=== PATIENT | female | born 1965 | race African-American/Black ===

== ENCOUNTER 2019-01-11 16:24 | Inpatient (IN) ==
[2019-01-11] MEDS ORDERED: ALUM/MAG/SIMETH/LIDO VISC 1:1 30 ML BOTTLE PO STA (16:59)
[2019-01-11] MEDS ORDERED: HYDROmorphone 2 MG/1 ML VIAL IV STA (16:59)
[2019-01-11] MEDS ORDERED: PANTOPRAZOLE 40 MG VIAL IV STA (16:59)
[2019-01-11] MEDS ORDERED: ONDANSETRON 4 MG/2 ML VIAL IV STA (16:59)
[2019-01-11 17:13] LABS: Basophils % 0.8 % (0.0-0.8); Hematocrit 41.4 VOL% (35.7-47.0); Hemoglobin 13.8 GM/DL (12.0-16.0); Immature Granulocytes % 0.4 %; Immature Granulocytes Absolute 0.02 #; Lymphocytes # 0.6 10*3/uL (1.4-4.0); Lymphocytes % 12.7 % (21.3-54.2); Mean Corpuscular HGB Conc 33.3 GM/DL (32-36); Mean Corpuscular Hemoglobin 26 PG (27-34); Mean Corpuscular Volume 79.2 FL (87-102); Mean Platelet Volume 12.7 FL (9.6-12.0); Monocytes # 0.1 10*3/uL (0.11-0.8); Monocytes % 2.1 % (1.7-12.7); Platelet Count 155 T/CUMM (130-400); Red Blood Count 5.23 MC/CUMM (3.8-5.5); Red Cell Distribution Width 14.6 % (9.3-17.3); White Blood Count 4.7 T/CUMM (4-12)
[2019-01-11 17:32] LABS: Alanine Aminotransferase 198 U/L (13-56); Albumin 3.2 G/DL (3.4-5.0); Alkaline Phosphatase 185 U/L (45-117); Amylase 35 U/L (25-115); Aspartate Amino Transferase 174 U/L (0-37); Blood Urea Nitrogen 12 MG/DL (7-18); Glucose 108 MG/DL (74-106); Osmolality,Calculated 268.2 MOS/KG (273-304); Potassium 3.5 MMOL/L (3.5-5.1); Sodium 134 MMOL/L (136-145); Total Protein 7.9 G/DL (6.4-8.3)
[2019-01-11 18:09] LABS: Amorphous Crystals,Urine Occasional /HPF (Few); Apearance,Urine Slightly Hazy (Clear); Bacteria,Urine Occasional /HPF (Few); Blood, Urine Moderate mg/dL (Negative); Glucose,Urine (UA) Negative (Negative); Ketones,Urine 20 mg/dL (Negative); Mucus,Urine Many /LPF (Occasional); Nitrite,Urine Negative (Negative); Protein,Urine 100 MG/DL; RBC,Urine 1 /HPF (0-4); Squamous Epithelial Cell,Urine Occasional /HPF (0-10); Transitional Epi Cells,Urine Occasional /HPF (<1); Urine Color Amber (Yellow); Urine Specific Gravity 1.025 (1.001-1.035); WBC,Urine 5 /HPF (0-6)
[2019-01-11 18:10] LABS: Bilirubin,Urine Moderate mg/dL (Negative)
[2019-01-11 18:15] LABS: Band Neutrophils 47 % (0-10); Hypochromasia 1+; Lymphocytes 11 % (20-55); Microcytosis Slight; Platelet Estimate Adequate; Segmented Neutrophils 40 % (50-85); Total Cells Counted 100
[2019-01-11] MEDS ORDERED: ALBUTEROL 2.5 MG/3 ML NEB RESP TX PRN ×2 (19:17)
[2019-01-11] MEDS ORDERED: INDOMETHACIN 25 MG CAPSULE PO PRN (19:17)
[2019-01-11] MEDS ORDERED: FUROSEMIDE 20 MG TABLET PO PRN (19:17)
[2019-01-11] MEDS ORDERED: SODIUM CHLORIDE 0.9% 1,000 ML IV STA (19:18)
[2019-01-11] MEDS: BUDESONIDE/FORMOTEROL 160-4.5 INHALER 6 GM INH SCH (21:47)
[2019-01-11] MEDS: PANTOPRAZOLE 40 MG TABLET PO SCH (21:50)
[2019-01-11] MEDS: COLCHICINE 0.6 MG CAPSULE PO SCH (21:50)
[2019-01-11] MEDS: AMOXICILLIN 500 MG CAPSULE PO SCH (22:03)
[2019-01-11] MEDS: DILTIAZEM CD 180 MG CAPSULE PO SCH (22:04)
[2019-01-11] MEDS: METOPROLOL TARTRATE 50 MG TABLET PO SCH (22:04)
[2019-01-11] MEDS: GABAPENTIN 300 MG CAPSULE PO SCH (22:05)
[2019-01-11] MEDS: DIVALPROEX ER 500 MG TABLET PO SCH (22:05)
[2019-01-11] MEDS: hydrALAZINE 25 MG TABLET PO SCH (22:05)
[2019-01-11] MEDS: CLARITHROMYCIN 500 MG TABLET PO SCH (22:05)
[2019-01-11] MEDS: CRISABOROLE TOP SCH (22:05)
[2019-01-11] MEDS: QUEtiapine 100 MG TABLET PO SCH (22:06)
[2019-01-11] MEDS: HYDROmorphone 2 MG/1 ML VIAL IV PRN (22:07)
[2019-01-12] MEDS: HYDROmorphone 2 MG/1 ML VIAL IV PRN ×4 (04:41→23:44)
[2019-01-12] MEDS ORDERED: PANTOPRAZOLE 40 MG TABLET PO SCH (09:00)
[2019-01-12] MEDS: COLCHICINE 0.6 MG CAPSULE PO SCH ×2 (09:18→21:37)
[2019-01-12] MEDS: DILTIAZEM CD 180 MG CAPSULE PO SCH ×2 (09:18→21:31)
[2019-01-12] MEDS: DIVALPROEX ER 500 MG TABLET PO SCH ×2 (09:18→21:31)
[2019-01-12] MEDS: METOPROLOL TARTRATE 50 MG TABLET PO SCH ×2 (09:18→21:31)
[2019-01-12] MEDS: hydrALAZINE 25 MG TABLET PO SCH ×3 (09:18→21:30)
[2019-01-12] MEDS: CETIRIZINE 10 MG TABLET PO SCH (09:18)
[2019-01-12] MEDS: CRISABOROLE TOP SCH ×2 (09:18→21:31)
[2019-01-12] MEDS: PANTOPRAZOLE 40 MG TABLET PO SCH ×2 (09:18→21:37)
[2019-01-12] MEDS: BUDESONIDE/FORMOTEROL 160-4.5 INHALER 6 GM INH SCH ×2 (09:18→21:32)
[2019-01-12 10:42] LABS: % Iron Saturation 11.9 % (18-50)
[2019-01-12 10:47] LABS: Albumin 2.8 G/DL (3.4-5.0); Calcium 8.4 MG/DL (8.5-10.1); Osmolality,Calculated 268.2 MOS/KG (273-304); Potassium 3.9 MMOL/L (3.5-5.1); Total Protein 7.2 G/DL (6.4-8.3)
[2019-01-12] MEDS: CLARITHROMYCIN 500 MG TABLET PO SCH (11:15)
[2019-01-12] MEDS: AMOXICILLIN 500 MG CAPSULE PO SCH (11:15)
[2019-01-12 11:35] LABS: Hepatitis A Ab IgM Quant 0.22 Index; Hepatitis A Ab IgM Result Negative (Negative); Hepatitis B Core IgM Result Negative (Negative); Hepatitis B Surface Ag Quant < 0.10 Index; Hepatitis B Surface Ag Result Negative (Negative); Hepatitis C Virus Ab Quant 0.08 Index; Hepatitis C Virus Ab Result Negative (Negative)
[2019-01-12] MEDS ORDERED: diphenhydrAMINE 2% CREAM 28 GM TUBE TOP PRN (16:51)
[2019-01-12] MEDS: SODIUM CHLORIDE 0.9% 1,000 ML IV SCH (18:04)
[2019-01-12] MEDS: metroNIDAZOLE INJ 500 MG in PREMIX 1 EACH IV SCH (18:09)
[2019-01-12] MEDS: predniSONE 20 MG TABLET PO SCH (18:18)
[2019-01-12] MEDS: TOPIRAMATE 100 MG TABLET PO SCH (18:19)
[2019-01-12] MEDS: diphenhydrAMINE 50 MG/1 ML VIAL IV SCH ×2 (19:25→23:35)
[2019-01-12] MEDS: LEVOFLOXACIN INJ 500 MG in PREMIX 1 EACH IV SCH (19:31)
[2019-01-12] MEDS: GABAPENTIN 300 MG CAPSULE PO SCH (21:31)
[2019-01-12] MEDS: QUEtiapine 100 MG TABLET PO SCH (21:32)
[2019-01-13] MEDS: metroNIDAZOLE INJ 500 MG in PREMIX 1 EACH IV SCH ×3 (01:01→16:40)
[2019-01-13] MEDS: DIVALPROEX ER 500 MG TABLET PO SCH ×3 (01:09→20:57)
[2019-01-13 04:30] LABS: Basophils % 0.4 % (0.0-0.8); Hemoglobin 10.8 GM/DL (12.0-16.0); Immature Granulocytes % 0.8 %; Immature Granulocytes Absolute 0.04 #; Lymphocytes # 0.8 10*3/uL (1.4-4.0); Lymphocytes % 15.8 % (21.3-54.2); Mean Corpuscular HGB Conc 31.8 GM/DL (32-36); Mean Corpuscular Hemoglobin 26 PG (27-34); Mean Corpuscular Volume 81.5 FL (87-102); Mean Platelet Volume 12.8 FL (9.6-12.0); Monocytes # 0.1 10*3/uL (0.11-0.8); Monocytes % 1.9 % (1.7-12.7); Neutrophils # 3.8 10*3/uL (1.4-7.4); Neutrophils % 81.1 % (38.7-73.9); Platelet Count 141 T/CUMM (130-400); Red Blood Count 4.17 MC/CUMM (3.8-5.5); Red Cell Distribution Width 14.9 % (9.3-17.3); White Blood Count 4.7 T/CUMM (4-12)
[2019-01-13 04:48] LABS: Hypochromasia 1+; Ovalocytes Slight; Platelet Estimate Adequate
[2019-01-13 04:49] LABS: Microcytosis Slight
[2019-01-13 04:53] LABS: Albumin 2.5 G/DL (3.4-5.0); Bilirubin,Total 3.4 MG/DL (0.2-1.0); Calcium 8.5 MG/DL (8.5-10.1); Osmolality,Calculated 268.2 MOS/KG (273-304); Potassium 3.9 MMOL/L (3.5-5.1); Total Protein 6.5 G/DL (6.4-8.3)
[2019-01-13] MEDS: diphenhydrAMINE 50 MG/1 ML VIAL IV SCH ×3 (05:30→19:34)
[2019-01-13] MEDS: HYDROmorphone 2 MG/1 ML VIAL IV PRN ×3 (08:00→16:30)
[2019-01-13] MEDS: COLCHICINE 0.6 MG CAPSULE PO SCH ×2 (09:00→20:57)
[2019-01-13] MEDS: hydrALAZINE 25 MG TABLET PO SCH ×3 (09:49→20:50)
[2019-01-13] MEDS: CRISABOROLE TOP SCH ×2 (09:49→20:51)
[2019-01-13] MEDS: BUDESONIDE/FORMOTEROL 160-4.5 INHALER 6 GM INH SCH ×2 (09:49→20:51)
[2019-01-13] MEDS: DILTIAZEM CD 180 MG CAPSULE PO SCH ×2 (09:49→20:50)
[2019-01-13] MEDS: METOPROLOL TARTRATE 50 MG TABLET PO SCH ×2 (09:50→20:51)
[2019-01-13] MEDS: TOPIRAMATE 100 MG TABLET PO SCH (09:51)
[2019-01-13] MEDS: SODIUM CHLORIDE 0.9% 1,000 ML IV SCH (12:25)
[2019-01-13 13:02] LABS: INR 1.1; PT Patient Result 11.4 SECS
[2019-01-13] MEDS: predniSONE 20 MG TABLET PO SCH (16:25)
[2019-01-13] MEDS: PANTOPRAZOLE 40 MG TABLET PO SCH ×2 (16:26→20:57)
[2019-01-13] MEDS: CETIRIZINE 10 MG TABLET PO SCH (16:36)
[2019-01-13] MEDS: LEVOFLOXACIN INJ 500 MG in PREMIX 1 EACH IV SCH (17:47)
[2019-01-13] MEDS: GABAPENTIN 300 MG CAPSULE PO SCH (20:51)
[2019-01-13] MEDS: QUEtiapine 100 MG TABLET PO SCH ×2 (20:51→22:30)
[2019-01-14] MEDS: HYDROmorphone 2 MG/1 ML VIAL IV PRN ×3 (00:47→13:16)
[2019-01-14] MEDS: diphenhydrAMINE 50 MG/1 ML VIAL IV SCH ×4 (00:47→17:53)
[2019-01-14] MEDS: metroNIDAZOLE INJ 500 MG in PREMIX 1 EACH IV SCH ×3 (00:55→16:19)
[2019-01-14 05:20] LABS: Basophils % 0.3 % (0.0-0.8); Hematocrit 33.1 VOL% (35.7-47.0); Hemoglobin 10.5 GM/DL (12.0-16.0); Immature Granulocytes % 0.7 %; Immature Granulocytes Absolute 0.05 #; Lymphocytes # 0.9 10*3/uL (1.4-4.0); Mean Corpuscular HGB Conc 31.7 GM/DL (32-36); Mean Corpuscular Hemoglobin 26 PG (27-34); Mean Corpuscular Volume 81.7 FL (87-102); Monocytes # 0.2 10*3/uL (0.11-0.8); Monocytes % 2.7 % (1.7-12.7); Neutrophils # 5.7 10*3/uL (1.4-7.4); Neutrophils % 83.3 % (38.7-73.9); Platelet Count 205 T/CUMM (130-400); Red Blood Count 4.05 MC/CUMM (3.8-5.5); Red Cell Distribution Width 15.1 % (9.3-17.3); White Blood Count 6.8 T/CUMM (4-12)
[2019-01-14] MEDS: SODIUM CHLORIDE 0.9% 1,000 ML IV SCH ×2 (05:47→09:42)
[2019-01-14 05:51] LABS: Albumin 2.4 G/DL (3.4-5.0); Bilirubin,Total 2.7 MG/DL (0.2-1.0); Calcium 8.3 MG/DL (8.5-10.1); Osmolality,Calculated 271.8 MOS/KG (273-304); Potassium 3.8 MMOL/L (3.5-5.1); Total Protein 6.5 G/DL (6.4-8.3)
[2019-01-14] MEDS ORDERED: DIAZEPAM 5 MG TABLET PO ONE (09:00)
[2019-01-14] MEDS: CETIRIZINE 10 MG TABLET PO SCH (09:34)
[2019-01-14] MEDS: BUDESONIDE/FORMOTEROL 160-4.5 INHALER 6 GM INH SCH ×2 (09:34→21:10)
[2019-01-14] MEDS: COLCHICINE 0.6 MG CAPSULE PO SCH ×2 (09:34→21:07)
[2019-01-14] MEDS: DIVALPROEX ER 500 MG TABLET PO SCH ×2 (09:34→21:08)
[2019-01-14] MEDS: predniSONE 20 MG TABLET PO SCH (09:35)
[2019-01-14] MEDS: PANTOPRAZOLE 40 MG TABLET PO SCH ×2 (09:35→21:07)
[2019-01-14] MEDS: CRISABOROLE TOP SCH ×2 (09:42→21:10)
[2019-01-14] MEDS: hydrALAZINE 25 MG TABLET PO SCH ×3 (09:42→21:10)
[2019-01-14] MEDS: METOPROLOL TARTRATE 50 MG TABLET PO SCH ×2 (09:42→21:10)
[2019-01-14] MEDS: DILTIAZEM CD 180 MG CAPSULE PO SCH ×2 (09:42→21:10)
[2019-01-14] MEDS: TOPIRAMATE 100 MG TABLET PO SCH (09:43)
[2019-01-14] MEDS: LEVOFLOXACIN INJ 500 MG in PREMIX 1 EACH IV SCH (17:53)
[2019-01-14] MEDS: GABAPENTIN 300 MG CAPSULE PO SCH (21:08)
[2019-01-14] MEDS: QUEtiapine 100 MG TABLET PO SCH (21:10)
[2019-01-15] MEDS: metroNIDAZOLE INJ 500 MG in PREMIX 1 EACH IV SCH ×3 (00:04→16:12)
[2019-01-15] MEDS: HYDROmorphone 2 MG/1 ML VIAL IV PRN ×4 (00:05→21:26)
[2019-01-15] MEDS: diphenhydrAMINE 50 MG/1 ML VIAL IV SCH ×4 (00:05→17:31)
[2019-01-15] MEDS: SODIUM CHLORIDE 0.9% 1,000 ML IV SCH (00:11)
[2019-01-15] MEDS: ONDANSETRON 4 MG/2 ML VIAL IV PRN ×2 (06:18→16:15)
[2019-01-15] MEDS: DIVALPROEX ER 500 MG TABLET PO SCH ×2 (08:40→20:59)
[2019-01-15] MEDS: METOPROLOL TARTRATE 50 MG TABLET PO SCH ×2 (08:41→21:02)
[2019-01-15] MEDS: COLCHICINE 0.6 MG CAPSULE PO SCH ×2 (08:41→20:59)
[2019-01-15] MEDS: PROMETHAZINE 25 MG TABLET PO PRN (08:41)
[2019-01-15] MEDS: hydrALAZINE 25 MG TABLET PO SCH ×3 (08:41→21:03)
[2019-01-15] MEDS: DILTIAZEM CD 180 MG CAPSULE PO SCH ×2 (08:42→21:03)
[2019-01-15] MEDS: CETIRIZINE 10 MG TABLET PO SCH (08:42)
[2019-01-15] MEDS: predniSONE 20 MG TABLET PO SCH (08:43)
[2019-01-15] MEDS: TOPIRAMATE 100 MG TABLET PO SCH (08:43)
[2019-01-15] MEDS: PANTOPRAZOLE 40 MG TABLET PO SCH ×2 (08:44→21:02)
[2019-01-15] MEDS: CRISABOROLE TOP SCH ×2 (08:44→21:03)
[2019-01-15] MEDS: BUDESONIDE/FORMOTEROL 160-4.5 INHALER 6 GM INH SCH ×2 (08:44→21:59)
[2019-01-15] MEDS: LEVOFLOXACIN INJ 500 MG in PREMIX 1 EACH IV SCH (17:30)
[2019-01-15] MEDS: GABAPENTIN 300 MG CAPSULE PO SCH (20:57)
[2019-01-15] MEDS: QUEtiapine 100 MG TABLET PO SCH (21:58)
[2019-01-16] MEDS: diphenhydrAMINE 50 MG/1 ML VIAL IV SCH ×2 (00:51→06:01)
[2019-01-16] MEDS: metroNIDAZOLE INJ 500 MG in PREMIX 1 EACH IV SCH ×2 (00:53→08:27)
[2019-01-16] MEDS: HYDROmorphone 2 MG/1 ML VIAL IV PRN ×2 (02:18→08:22)
[2019-01-16 06:33] LABS: Albumin 2.2 G/DL (3.4-5.0); Bilirubin,Total 1.4 MG/DL (0.2-1.0); Osmolality,Calculated 265.2 MOS/KG (273-304); Potassium 4.4 MMOL/L (3.5-5.1); Total Protein 6.7 G/DL (6.4-8.3)
[2019-01-16] MEDS: ONDANSETRON 4 MG/2 ML VIAL IV PRN (08:24)
[2019-01-16] MEDS: TOPIRAMATE 100 MG TABLET PO SCH (08:25)
[2019-01-16] MEDS: DIVALPROEX ER 500 MG TABLET PO SCH ×2 (08:25→20:33)
[2019-01-16] MEDS: hydrALAZINE 25 MG TABLET PO SCH ×3 (08:25→20:34)
[2019-01-16] MEDS: COLCHICINE 0.6 MG CAPSULE PO SCH ×2 (08:25→20:32)
[2019-01-16] MEDS: METOPROLOL TARTRATE 50 MG TABLET PO SCH ×2 (08:26→20:32)
[2019-01-16] MEDS: predniSONE 20 MG TABLET PO SCH (08:26)
[2019-01-16] MEDS: PANTOPRAZOLE 40 MG TABLET PO SCH ×2 (08:26→20:33)
[2019-01-16] MEDS: CETIRIZINE 10 MG TABLET PO SCH (08:26)
[2019-01-16] MEDS: CRISABOROLE TOP SCH ×2 (08:27→20:36)
[2019-01-16] MEDS: DILTIAZEM CD 180 MG CAPSULE PO SCH ×2 (08:30→20:33)
[2019-01-16] MEDS: BUDESONIDE/FORMOTEROL 160-4.5 INHALER 6 GM INH SCH ×2 (08:31→20:35)
[2019-01-16 09:37] LABS: Basophils % 0.5 % (0.0-0.8); Eosinophils % 0.2 % (0.00-10.9); Hematocrit 32.1 VOL% (35.7-47.0); Hemoglobin 10.2 GM/DL (12.0-16.0); Immature Granulocytes % 1.2 %; Lymphocytes # 1.5 10*3/uL (1.4-4.0); Lymphocytes % 19.1 % (21.3-54.2); Mean Corpuscular HGB Conc 31.8 GM/DL (32-36); Mean Corpuscular Hemoglobin 27 PG (27-34); Mean Corpuscular Volume 83.8 FL (87-102); Mean Platelet Volume 10.4 FL (9.6-12.0); Monocytes # 0.6 10*3/uL (0.11-0.8); Neutrophils # 5.8 10*3/uL (1.4-7.4); Platelet Count 355 T/CUMM (130-400); Red Blood Count 3.83 MC/CUMM (3.8-5.5); Red Cell Distribution Width 15.7 % (9.3-17.3)
[2019-01-16] MEDS ORDERED: ACETAMINOPHEN 325 MG TABLET PO PRN (09:39)
[2019-01-16] MEDS: PROMETHAZINE 25 MG TABLET PO PRN ×2 (13:56→20:33)
[2019-01-16] MEDS ORDERED: metroNIDAZOLE 500 MG TABLET PO SCH (15:00)
[2019-01-16] MEDS: metroNIDAZOLE 500 MG TABLET PO SCH ×2 (16:25→20:32)
[2019-01-16] MEDS ORDERED: LEVOFLOXACIN 500 MG TABLET PO SCH (18:00)
[2019-01-16] MEDS: QUEtiapine 100 MG TABLET PO SCH (20:32)
[2019-01-16] MEDS: GABAPENTIN 300 MG CAPSULE PO SCH (20:33)
[2019-01-17] MEDS: PROMETHAZINE 25 MG TABLET PO PRN ×2 (04:17→11:05)
[2019-01-17] MEDS: TOPIRAMATE 100 MG TABLET PO SCH (10:57)
[2019-01-17] MEDS: DIVALPROEX ER 500 MG TABLET PO SCH (10:57)
[2019-01-17] MEDS: CETIRIZINE 10 MG TABLET PO SCH (10:58)
[2019-01-17] MEDS: METOPROLOL TARTRATE 50 MG TABLET PO SCH (10:59)
[2019-01-17] MEDS: PANTOPRAZOLE 40 MG TABLET PO SCH (10:59)
[2019-01-17] MEDS: metroNIDAZOLE 500 MG TABLET PO SCH (10:59)
[2019-01-17] MEDS: hydrALAZINE 25 MG TABLET PO SCH (10:59)
[2019-01-17] MEDS: DILTIAZEM CD 180 MG CAPSULE PO SCH (11:00)
[2019-01-17 11:02] VITALS: BP 145/72
[2019-01-17] MEDS: BUDESONIDE/FORMOTEROL 160-4.5 INHALER 6 GM INH SCH (11:02)
[2019-01-17] MEDS: CRISABOROLE TOP SCH (11:10)
[2019-01-17] MEDS: COLCHICINE 0.6 MG CAPSULE PO SCH (11:10)
== END 2019-01-17 12:35 | disposition home or self-care (01) | DRG 392 ==
LOC: EDUNIT# → EDBD → N.ED 16:24 → N.EDINP 19:10 → N.3E 19:41
PROVIDERS: ADMIT Internal Medicine; ATTEND Internal Medicine

== ENCOUNTER 2020-10-12 20:50 | Observation (INO) ==
[2020-10-12 21:56] LABS: Basophils % 0.5 % (0.0-0.8); Eosinophils # 0.2 10*3/uL (0.0-0.87); Eosinophils % 1.8 % (0.00-10.9); Hematocrit 40.3 VOL% (35.7-47.0); Immature Granulocytes % 0.5 %; Immature Granulocytes Absolute 0.04 #; Lymphocytes # 1.6 10*3/uL (1.4-4.0); Lymphocytes % 19.1 % (21.3-54.2); Mean Corpuscular HGB Conc 32.3 GM/DL (32-36); Mean Corpuscular Volume 83.8 FL (87-102); Mean Platelet Volume 11.3 FL (9.6-12.0); Monocytes % 7.2 % (1.7-12.7); Neutrophils % 70.9 % (38.7-73.9); Platelet Count 338 T/CUMM (130-400); Red Blood Count 4.81 MC/CUMM (3.8-5.5); White Blood Count 8.5 T/CUMM (4-12)
[2020-10-12 22:07] LABS: PT Patient Result 10.3 SECS (9.8-11.9)
[2020-10-12 22:19] LABS: Albumin 2.9 G/DL (3.4-5.0); Bilirubin,Total 0.6 MG/DL (0.2-1.0); Calcium 8.8 MG/DL (8.5-10.1); Ferritin 288.4 ng/ml (8-252); Total Protein 8.5 G/DL (6.4-8.3)
[2020-10-12] MEDS ORDERED: FUROSEMIDE 40 MG/4 ML VIAL IV STA (22:30)
[2020-10-12] MEDS ORDERED: DEXAMETHASONE 4 MG/1 ML VIAL IV STA (22:47)
[2020-10-12] MEDS ORDERED: AZITHROMYCIN INJ 500 MG in SODIUM CHLORIDE 0.9% 250 ML IV STA (22:47)
[2020-10-12] MEDS ORDERED: AZITHROMYCIN 250 MG TABLET PO STA (22:58)
[2020-10-12] MEDS ORDERED: GLUCAGON 1 MG VIAL IM PRN (23:25)
[2020-10-12] MEDS ORDERED: diphenhydrAMINE CAP 25 MG CAPSULE PO PRN (23:25)
[2020-10-12] MEDS ORDERED: ACETAMINOPHEN 325 MG TABLET PO PRN (23:25)
[2020-10-12] MEDS ORDERED: NICOTINE 21 MG/24 HR PATCH TRANSDERM PRN (23:25)
[2020-10-12] MEDS ORDERED: guaiFENesin/DM ER 600-30 MG TABLET PO PRN (23:25)
[2020-10-12] MEDS ORDERED: ONDANSETRON 4 MG/2 ML VIAL IV PRN (23:25)
[2020-10-12] MEDS ORDERED: BISACODYL 5 MG TABLET PO PRN (23:25)
[2020-10-12] MEDS ORDERED: SIMETHICONE CHEW 125 MG TABLET PO PRN (23:25)
[2020-10-12] MEDS ORDERED: ALUMINUM/MAGNES/SIMETH MAX STR 30 ML UDCUP PO PRN (23:25)
[2020-10-12] MEDS ORDERED: ZALEPLON 5 MG CAPSULE PO PRN (23:25)
[2020-10-12] MEDS ORDERED: DEXTROSE 50% 25 GM/50 ML VIAL IV PRN (23:25)
[2020-10-12] MEDS ORDERED: hydrALAZINE 20 MG/1 ML VIAL IV PRN (23:25)
[2020-10-12] MEDS ORDERED: ALBUTEROL 2.5 MG/3 ML NEB RESP TX PRN (23:25)
[2020-10-13] MEDS ORDERED: LEVOFLOXACIN INJ 750 MG in PREMIX 1 EACH IV SCH
[2020-10-13] MEDS: ALBUTEROL/IPRATROPIUM 3 ML NEB RESP TX SCH ×6 (00:25→18:54)
[2020-10-13] MEDS ORDERED: FUROSEMIDE 40 MG/4 ML VIAL IV SCH (08:00)
[2020-10-13] MEDS: ENOXAPARIN 40 MG/0.4 ML SYRINGE SUBCUT SCH (08:43)
[2020-10-13] MEDS: PANTOPRAZOLE 40 MG TABLET PO SCH (08:43)
[2020-10-13] MEDS: DIVALPROEX ER 500 MG TABLET PO SCH (08:43)
[2020-10-13] MEDS: CETIRIZINE 10 MG TABLET PO SCH (08:43)
[2020-10-13] MEDS: METOPROLOL TARTRATE 50 MG TABLET PO SCH ×2 (08:44→21:29)
[2020-10-13] MEDS ORDERED: DILTIAZEM CD 180 MG CAPSULE PO SCH (09:00)
[2020-10-13] MEDS ORDERED: hydrALAZINE 25 MG TABLET PO SCH (09:00)
[2020-10-13 11:50] LABS: Basophils % 0.5 % (0.0-0.8); Eosinophils % 0.5 % (0.00-10.9); Hematocrit 40.7 VOL% (35.7-47.0); Hemoglobin 13.3 GM/DL (12.0-16.0); Immature Granulocytes % 1.2 %; Immature Granulocytes Absolute 0.07 #; Lymphocytes # 0.9 10*3/uL (1.4-4.0); Lymphocytes % 14.9 % (21.3-54.2); Mean Corpuscular HGB Conc 32.7 GM/DL (32-36); Mean Corpuscular Volume 83.4 FL (87-102); Mean Platelet Volume 11.8 FL (9.6-12.0); Monocytes % 6.6 % (1.7-12.7); Neutrophils % 76.3 % (38.7-73.9); Platelet Count 304 T/CUMM (130-400); Red Blood Count 4.88 MC/CUMM (3.8-5.5); Red Cell Distribution Width 14.2 % (9.3-17.3); White Blood Count 5.8 T/CUMM (4-12)
[2020-10-13 12:03] LABS: Albumin 2.9 G/DL (3.4-5.0); Bilirubin,Total 0.5 MG/DL (0.2-1.0); Calcium 9.1 MG/DL (8.5-10.1); Osmolality,Calculated 271.4 MOS/KG (273-304); Total Protein 8.7 G/DL (6.4-8.3)
[2020-10-13 12:17] LABS: Anisocytosis Slight; Atypical Lymphocytes Few; Band Neutrophils 7 % (0-10); Lymphocytes 14 % (20-55); Metamyelocytes 1 %; Microcytosis Slight; Platelet Estimate Normal; Polychromasia Slight; Segmented Neutrophils 73 % (50-85); Total Cells Counted 100
[2020-10-13] MEDS ORDERED: DEXAMETHASONE 4 MG/1 ML VIAL IV SCH (14:30)
[2020-10-14] MEDS: ALBUTEROL/IPRATROPIUM 3 ML NEB RESP TX SCH ×3 (00:15→07:25)
[2020-10-14] MEDS ORDERED: AZITHROMYCIN 250 MG TABLET PO ONE (07:23)
[2020-10-14 08:45] VITALS: BP 139/89
[2020-10-14] MEDS ORDERED: LORazepam 2 MG/1 ML VIAL IV ONE (09:33)
[2020-10-14] MEDS: METOPROLOL TARTRATE 50 MG TABLET PO SCH (10:00)
[2020-10-14] MEDS: DIVALPROEX ER 500 MG TABLET PO SCH (10:00)
[2020-10-14] MEDS: PANTOPRAZOLE 40 MG TABLET PO SCH (10:00)
[2020-10-14] MEDS: ENOXAPARIN 40 MG/0.4 ML SYRINGE SUBCUT SCH (10:00)
[2020-10-14] MEDS: CETIRIZINE 10 MG TABLET PO SCH (10:01)
[2020-10-15] MEDS ORDERED: AZITHROMYCIN 250 MG TABLET PO SCH (09:00)
[2020-10-16 10:13] LABS: Total Protein (Chem) 8.5 G/DL (6.4-8.3)
[2020-10-16 11:28] LABS: Albumin (SPE) 4.4 G/DL (3.2-5.3); Alpha 1 (SPE) 0.3 G/DL (0.1-0.4); Alpha 2 (SPE) 1.2 G/DL (0.4-1.0); Alpha 2 (SPE) Rel % 14.5 %; Beta (SPE) 1.3 G/DL (0.5-1.1); Gamma (SPE) 1.3 G/DL (0.7-1.7); Gamma (SPE) Rel % 15.5 %
[2020-10-19 10:05] LABS: Immuno Free Light Chain Kappa 3.39 MG/DL (0.33-1.94); Immuno Free Light Chain Lambda 4.29 MG/DL (0.57-2.63); Immuno Free Light Chain Ratio 0.79 MG/DL (0.26-1.65)
== END 2020-10-14 09:45 | disposition left against medical advice (07) ==
LOC: N.ED 20:50 → N.EDINP 23:25 → INTOOBSV 23:25 → N.TELEN 23:41
PROVIDERS: ADMIT Emergency Medicine; ATTEND Emergency Medicine